=== PATIENT | female | born 1980 | race Caucasian/White ===

== ENCOUNTER 2018-02-06 08:36 | Outpatient (CLI) | payer MEDICAID | END 2018-02-06 08:37 | disposition home or self-care (01) | LOC: LAB.N 08:36 | PROVIDERS: ATTEND Nurse Practitioner | DX: Z34.81 Encounter for supervision of other normal pregnancy, first trimester (principal) | CPT/HCPCS: 36415; 84702 ==

== ENCOUNTER 2018-02-13 08:00 | Outpatient (CLI) | payer MEDICAID | END 2018-02-13 23:59 | LOC: LAB.R 08:00 | PROVIDERS: ATTEND Nurse Practitioner Obstetrics & Gynecology | DX: Z11.3 Encounter for screening for infections with a predominantly sexual mode of transmission (principal) | CPT/HCPCS: 87491; 87591 ==

== ENCOUNTER 2018-02-28 15:06 | Outpatient (CLI) | payer MEDICAID ==
[2018-02-28 15:33] LABS: BILIRUBIN,URINE NEGATIVE (NEGATIVE); CLARITY,URINE CLEAR (CLEAR); GLUCOSE, URINE (UA) NEGATIVE (NEGATIVE); KETONES,URINE (UA) NEGATIVE (NEGATIVE); LEUKOCYTE ESTERASE, URINE NEGATIVE (NEGATIVE); NITRITE,URINE NEGATIVE (NEGATIVE); OCCULT BLOOD,URINE NEGATIVE (NEGATIVE); PROTEIN,URINE NEGATIVE (NEGATIVE); UROBILINOGEN,URINE 0.2 (NORMAL) E.U./dL (NORMAL)
[2018-02-28 15:35] LABS: BASOPHILS # (AUTO) 0.1 10^3/uL (0.0-0.1); EOSINOPHILS # (AUTO) 0.2 10^3/uL (0.0-0.7); EOSINOPHILS % (AUTO) 1.9 %; HGB - HEMOGLOBIN 12.6 g/dL (12.0-16.0); LYMPHOCYTES # (AUTO) 1.8 10^3/uL (1.5-3.5); LYMPHOCYTES % (AUTO) 19.5 %; MEAN CORPUSCULAR HEMOGLOBIN 29.2 pg (27.0-31.0); MEAN CORPUSCULAR HGB CONC 34.4 g/dL (32.0-36.0); MEAN CORPUSCULAR VOLUME 84.9 fL (81.0-99.0); MEAN PLATELET VOLUME 9.2 fL (7.9-10.8); MONOCYTES # (AUTO) 0.7 10^3/uL (0.0-1.0); MONOCYTES % (AUTO) 7.7 %; NEUTROPHILS # (AUTO) 6.3 10^3/uL (1.5-6.6); NEUTROPHILS % (AUTO) 69.9 %; PLT - PLATELET COUNT 272 10^3/uL (130-450)
[2018-02-28 15:41] LABS: BACTERIA,URINE Rare /HPF (None Seen); RBC,URINE None Seen /HPF (0-5); SQUAMOUS EPITHELIAL CELL,UR MOD Squamous (<= Few)
[2018-03-01 13:11] LABS: HEPATITIS B SURFACE ANTIGEN NON-REACTIVE (NON-REACTIVE)
[2018-03-01 15:40] LABS: HIV AG/AB 4TH GEN NON-REACTIVE (NON-REACTIVE)
[2018-03-01 16:46] LABS: HEPATITIS C ANTIBODY NON-REACTIVE (NON-REACTIVE)
== END 2018-02-28 15:07 | disposition home or self-care (01) ==
LOC: LAB 15:06
PROVIDERS: ATTEND Nurse Practitioner Obstetrics & Gynecology
DX: O09.521 Supervision of elderly multigravida, first trimester (principal); Z36.9 Encounter for antenatal screening, unspecified
CPT/HCPCS: 36415; 81001; 81599; 85025; 86762; 86803; 86850; 86900; 86901; 87340; 87389

== ENCOUNTER 2018-05-01 12:31 | Outpatient (CLI) | payer MEDICAID ==
--- NOTE | 2018-05-01 16:05 | Ultrasound Report ---
Reason: ENCOUNTER FOR SCREENING,UNSPECIFIED Procedure Date: 05/01/2018 Accession Number: [id number] / [id number] Procedure: US - OB Detailed Eval CPT Code: FULL RESULT: EXAM: COMPLETE OBSTETRICAL ULTRASOUND EXAM DATE: 05/01/2018 01:44 PM. CLINICAL HISTORY: anatomic survey. COMPARISON: None. TECHNIQUE: Real-time sonographic evaluation of the fetus performed by the plastics heat welder. Multiple architectural representative static images were saved for review. Additional transvaginal imaging to more accurately evaluate cervical length/placental position/etc. DATING: Established EGA 19 weeks 4 days with [facility] 09/21/2018 based on LMP. EGA 20 weeks 1 day with [facility] 09/17/2018 based on the current ultrasound. GENERAL EVALUATION Clemens . Cardiac activity: 154 bpm. movement: Visualized. Presentation: Cephalic. Placenta: Posterior fundal position. No evidence for previa. Umbilical cord: 3 vessel cord. Central placental cord origin. Amniotic fluid: Subjectively normal. BIOMETRY Bi-Parietal Diameter (BPD): 4.5 cm, 19 weeks 5 days Head Circumference (HC): 17.0 cm, 19 weeks 4 days Abdominal Circumference (AC): 15.9 cm, 21 weeks 0 days Femur Length (FL): 3.3 cm, 20 weeks 2 days Estimated Weight: 359 gm, 91st LMP percentile. ANATOMY The intracranial structures, face/nose/lips, spine, 4 chamber heart and outflow tracts, stomach, abdominal wall and cord insertion, diaphragm, kidneys, bladder, and extremities were visualized and demonstrate no abnormality. The nasal bone is suboptimally evaluated. MATERNAL STRUCTURES Uterus: Unremarkable. Cervix: Long and closed. Transabdominal length 3.7 cm. Right ovary/adnexa: Unremarkable. Left ovary/adnexa: Unremarkable. Free fluid: None. IMPRESSION: 1. Clemens live intrauterine with gestational age 19 weeks 4 days based on LMP. 2. Estimated weight is within expected limits for assigned dating. 3. The nasal bone is suboptimally evaluated. Otherwise normal anatomic survey. No anatomic abnormalities are detected at this time. May follow-up in 1-2 weeks for focused profile evaluation if clinically indicated. RADIA
== END 2018-05-01 12:32 | disposition home or self-care (01) ==
LOC: DI 12:31
PROVIDERS: ATTEND Registered Nurse
DX: Z36.9 Encounter for antenatal screening, unspecified (principal)
CPT/HCPCS: 76811

== ENCOUNTER 2019-05-06 10:36 | Outpatient (CLI) | payer MEDICAID ==
[2019-05-06 16:17] VITALS: BP 90/50
--- NOTE | 2019-05-06 16:17 | SLEEP CARE CONSULTATION ---
Information from patient questionnaire entered by Lauren Guerra. I have reviewed and concur with the information entered by Lauren Guerra. This document represents the service I personally performed and the decisions made by me, Sarah Quintero MD, [facility]. History of Present Illness Reason for Visit: New patient Chief Complaint: reports: Excessive daytime sleepiness, Other (IDIOPATHIC HYPERSOMNOLENCE) Duration of Symptoms: 20 plus years Usual bedtime: 9-10 pm Time it takes to fall asleep: 1-2 mins Snores at night: Yes (not often) Observed to quit breathing while asleep: No Sleeps alone due to snoring: No Number of times waking at night: 3-5 times Reasons for waking at night: reports: Other (nursing my baby) Recalls having dreams: Yes Usually gets out of bed at: 8ish am Feels refreshed in the morning: No Morning headache: Yes Sleepy or fatigued during the day: Yes Ever fallen asleep while driving: No Takes day naps: Yes Dreams during day naps: Yes Prior sleep studies: Yes (unsure) Year and Where: 2013 or 2014 , [facility] (closed) Additional HPI information: I had the pleasure of seeing Ms. Hamilton today regarding the possibility of her having a sleep disorder. As you know, she is a 39 year old lady who complains of excessive daytime sleepiness. She had a sleep study that included polysomnography and multiple sleep latency test (MSLT) in [place] about 4 5 years ago. She was told that she did not have narcolepsy or idiopathic hypersomnia. The reports are not available because the sleep lab has since closed. No treatment was prescribed. However, about a year later a psychiatrist prescribed her with stimulants Vyvance and dexadrine. She does not recall being diagnosed with a psychiatric disorder such as attention deficit disorder. The medications help with daytime sleepiness and sleep paralysis that was bothering her. She is not sure if modafinil has been tried. She takes the medications every day except for when she was . She said when she was , she slept all day. She would rather not take the medications she could help it. The patient tells me that she normally goes to bed around 9 - 10 pm, and it takes her approximately 1 - 2 minutes to fall asleep. She has not been told that she snores loudly or irregularly at night. She has never been observed to stop breathing in her sleep. Her spouse sleeps in the same bed. She can recall waking up on the average of 3 - 5 times during the night. Most of the time she wakes up because of having to nurse her child. There is not a lot of tossing and turning in her sleep. No somniloquy (sleep talking) or somnambulism (sleep walking). Generally she can recall having dreams. In the morning she usually gets up out of the bed around 8 a.m. not feeling refreshed nor rested. She usually has morning headache. During the day she complains of feeling sleepy and fatigued. Her score on [place] Sleepiness Scale is 13 out of 24. She has never fallen asleep while driving nor has had any accident due to sleepiness. She usually takes naps during the day. Upon falling asleep during the day she reports having vivid dreams. She denies having impaired concentration during the day. 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 Patient is Life Partner and lives in [place]. Have you smoked in the past 12 months: No Alcohol use: No Caffeine use: Yes Caffeine amount and frequency: 1 mauritian press a day Family History Family history of sleep disordered breathing: No Allergies and Home Medications Drug allergies reviewed: Yes Home medication list reviewed: Yes Allergy and home medication list: vyvanse 60mg dexadrine 10mg Review of Systems Neurological: reports: headaches Musculoskeletal: reports: muscle pain or cramping, mobility problems Physical Exam Vital signs obtained and entered by: Dr. Quintero Blood Pressure: 90/50 Cuff size: long Heart Rate: 72 O2 Saturation: 99 Height: 5 ft 9 in Weight (kg): 160 lb Body Mass Index: 23.6 BMI Classification: Healthy weight Neck circumference: 13 Mood/affect: normal HEENT: No craniofacial malformation Nostrils: patent to airflow Turbinates: normal Septum: midline Mouth and throat: normal Soft palate: normal Hard palate: normal Uvula: normal Uvula visualization: 100% Mallampati Class I Tongue: normal in size Tonsils: small Chin and jaw: normal size and position Neck: normal w/o lymphadenopathy or thyromegaly Heart: regular rate and rhythm Lungs: clear bilaterally Abdomen: soft Extremities: no edema or clubbing Neurologic: intact Impression and Plan IMPRESSION: 1. Hypersomnia, responding well to Vyvanse and dexadrine. The patient has no clear diagnosis. The sleep physician at [facility] told her that she does not have narcolepsy or idiopathic hypersomnia but her psychiatrist gave prescribed her the stimulants. She reports symptoms suggestive of narcolepsysleep paralysis, hypnagogia, and possible cataplexy. Without documentation of narcolepsy or idiopathic hypersomnia, I cannot continue the stimulants for her. I recommend repeating the sleep studies (polysomnography and multiple sleep latency test) off the medications. In the meantime, we will try to get the sleep study report from [facility] and chart notes from the psychiatrist as to why he started her on the medications (did he think that she had ADD?). I informed the patient of what the sleep studies involve and after some discussion, she agreed to proceed. Plan: 1. Schedule polysomnography + multiple sleep latency test (MSLT). The patient will discontinue the stimulants 2 weeks prior to the study. 2. Attempt to get records from the sleep facility in [place] and from the psychiatrist that prescribed her the medications. 3. Return for follow up after the sleep study. I spent 100% of this 15 minute visit face to face with the patient with greater than 50% of this was spent time counseling the patient and coordination of care.
== END 2019-05-06 10:37 | disposition home or self-care (01) ==
LOC: SC 10:36
PROVIDERS: ATTEND Internal Medicine Pulmonary Disease
DX: G47.10 Hypersomnia, unspecified (principal)
CPT/HCPCS: 99203; 99212

== ENCOUNTER 2019-09-16 20:18 | Outpatient (CLI) | payer MEDICAID | END 2019-09-16 20:19 | disposition home or self-care (01) | LOC: SC 20:18 | PROVIDERS: ATTEND Internal Medicine Pulmonary Disease | DX: G47.10 Hypersomnia, unspecified (principal) | CPT/HCPCS: 95810 ==

== ENCOUNTER 2019-09-17 05:45 | Outpatient (CLI) | payer MEDICAID | END 2019-09-17 05:46 | disposition home or self-care (01) | LOC: SC 05:45 | PROVIDERS: ATTEND Internal Medicine Pulmonary Disease | DX: G47.10 Hypersomnia, unspecified (principal) | CPT/HCPCS: 95805 ==

== ENCOUNTER 2019-09-17 08:00 | Outpatient (CLI) | payer MEDICAID ==
[2019-09-17 15:26] LABS: MUDS CUTOFF CONCENTRATIONS CUTOFF CONC BELOW:
[2019-09-17 15:45] LABS: AMPHETAMINE SCREEN,URINE NEGATIVE (NEGATIVE); BENZODIAZEPINES SCREEN, URINE NEGATIVE (NEGATIVE); COCAINE SCREEN URINE NEGATIVE (NEGATIVE); METHADONE SCREEN, URINE NEGATIVE (NEGATIVE); METHAMPHETAMINES SCREEN, URINE NEGATIVE (NEGATIVE); OPIATE SCREEN, URINE NEGATIVE (NEGATIVE); OXYCODONE SCREEN, URINE NEGATIVE (NEGATIVE); PROPOXYPHENE SCREEN, URINE NEGATIVE (NEGATIVE); TRICYCLIC ANTIDEPRESSANT,URINE NEGATIVE (NEGATIVE)
== END 2019-09-17 23:59 | disposition home or self-care (01) ==
LOC: LAB.R 08:00
PROVIDERS: ATTEND Internal Medicine Pulmonary Disease
DX: R41.82 Altered mental status, unspecified (principal)
CPT/HCPCS: 80306

== ENCOUNTER 2019-09-30 12:54 | Outpatient (CLI) | payer MEDICAID ==
--- NOTE | 2019-09-30 14:32 | SLEEP CARE CONSULTATION ---
Information from patient questionnaire entered by Allison Flores. I have reviewed and concur with the information entered by Allison Flores. This document represents the service I personally performed and the decisions made by me, Sarah Quintero MD, [facility]. History of Present Illness Initial [place] Sleepiness Scale score: 13 Current [place] Sleepiness Scale score: 12 Additional HPI information: HPI: returned for follow up of the sleep studies (in-laboratory p olysomnography and multiple sleep latency test) she recently had. The polysomnography showed that the patient had slightly reduced sleep efficiency due to a few awakenings after the sleep onset. Except for mild sleep fragmentation, the sleep architecture was normal. REM latency was normal. Respiratory monitoring showed no significant sleep disordered breathing (AHI = 1.0) or hypoxia (david oxygen saturation of 89%). The patient slept adequately in supine position (supine AHI = 1.6; non-supine = 0.34). Snore was infrequent and light in intensity. There was no significant periodic leg movement of sleep. Cardiac rhythm was normal sinus rhythm without significant arrhythmia. No abnormal behavior (parasomnia) observed during the night. The multiple sleep latency test (MSLT) showed mean sleep latency of 6:45 minutes which is in the range of mild daytime sleepiness. No sleep onset REM period. However, she only had 4 naps instead of the standard 5 because she had to go home early. The patient was informed of these findings. The patient main complaints remain sleep paralysis and excessive daytime sleepiness. The sleep paralysis is now less frequent. She was on Vyvanse and dexadrine but went off them last June. She said the medications did make her more awake during the day. The medications were prescribed by her psychiatrist but she has not been told that she has any psychiatric disorders. She tried modafinil in the past but developed headache on it. Allergies and Home Medications Drug allergies reviewed: Yes Home medication list reviewed: Yes (none) Review of Systems Review of systems same as previous: Yes Physical Exam Height: 5 ft 9 in Weight: 160 lb Body Mass Index: 23.6 BMI Classification: Healthy weight Impression and Plan IMPRESSION: 1. Hypersomnia, mild, based on the multiple sleep latency test (MSLT) result. Most likely she does not have narcolepsy because there were no naps with sleep onset REM period. The amount of REM sleep at night was also normal. She was encouraged to get enough sleep at night. 2. 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 She was reassured that the disorder, even though scary, is safe. She was advised to avoid sleep deprivation and sleeping supine. PLAN: 1. Allow at least 8 9 hours for sleep each night. 2. Avoid sleeping supine 3. Follow up with her psychiatrist regarding the two medications she discontinued. 4. Return to the sleep clinic on as needed basis. I spent 100% of this visit face to face with the patient with greater than 50% of this was spent time counseling the patient and coordination of care.
== END 2019-09-30 12:55 | disposition home or self-care (01) ==
LOC: SC 12:54
PROVIDERS: ATTEND Internal Medicine Pulmonary Disease
DX: G47.10 Hypersomnia, unspecified (principal); G47.53 Recurrent isolated sleep paralysis
CPT/HCPCS: 99212; 99213

== ENCOUNTER 2020-11-29 14:07 | Outpatient (CLI) | payer MEDICAID ==
--- NOTE | 2020-11-29 16:03 | SLEEP CARE CONSULTATION ---
Information from patient questionnaire entered by Karina Parisi. I have reviewed and concur with the information entered by Karina Parisi. This document represents the service I personally performed and the decisions made by me, Sarah Quintero MD, [facility]. History of Present Illness Service Date and Time: 11/29/2020 1407 AHI: 1.0 Reason for follow up: annual (Last seen 09/2019) Prior sleep studies: Yes (unsure) Year and Where: 2019 [facility], 2013 or 2014 [facility] (closed) HPI additional information: HPI: Ms. Hamilton was seen here about a year ago with complaints of sleep paralysis and excessive daytime sleepiness. An in-laboratory polysomnography and multiple sleep latency test (MSLT) were performed. The polysomnography was normal. The MSLT showed decreased mean sleep latency of about 6 minutes but no sleep onset REM period. The test was stopped prematurely after 4 naps because she had to breast feed. She returns today because she is sleepier during the day ([place] Sleepiness Scale score is 10). She said the symptoms improved over the past year but the sleepiness recently returned. The sleep paralysis is still absent. Presently, she is not taking any medications (she was on Vyvanse and dexadrine. She has gained weight. No snore reported by her . She says that daytime naps are not helpful. She usually wakes up from them with a headache. Subjective Initial [place] Sleepiness Scale score: 13 (in 2019) Current [place] Sleepiness Scale score: 10 Allergies and Home Medications Drug allergies reviewed: Yes Home medication list reviewed: Yes Review of Systems Review of systems same as previous: Yes Physical Exam Height: 5 ft 9 in Weight: 202 lb Body Mass Index: 29.8 BMI Classification: Overweight Impression and Plan IMPRESSION: 1. Hypersomnia, of unclear etiology. With 40-lb weight gain, she may now have obstructive sleep apnea-hypopnea. I will repeat the in-laboratory polysomnography and multiple sleep latency test (MSLT). PLAN: 1. Schedule an in-laboratory polysomnography + MSLT 2. Try to lose weight. Return for a follow up after the sleep study. Follow up recommended for: Weight management Visit Type: In Office Time Spent with Patient (minutes): 15 Provider Statement: I spent 100% of the Face to Face Visit with the patient with greater than 50% spent counseling the patient and coordination of care.
== END 2020-11-29 14:08 | disposition home or self-care (01) ==
LOC: SC 14:07
PROVIDERS: ATTEND Internal Medicine Pulmonary Disease
DX: G47.10 Hypersomnia, unspecified (principal); E66.3 Overweight; Z68.29 Body mass index [BMI] 29.0-29.9, adult
CPT/HCPCS: 99212

== ENCOUNTER 2020-12-20 07:13 | Outpatient (CLI) | payer MEDICAID ==
--- NOTE | 2020-12-20 12:35 | MRI Report ---
PROCEDURE: Shoulder RT W/O INDICATIONS: MUSCLE ATROPHY OF RT SHLDR, R WINGED SCAPULA TECHNIQUE: Noncontrast oblique coronal T2 fast spin echo with fat saturation, oblique sagittal T1 spin echo and T2 fast spin echo with fat saturation, axial T1 spin echo and T2 fast spin echo with fat saturation t hrough the shoulder. COMPARISON: None. FINDINGS: Rotator cuff: Supraspinatus tendinopathy, with low-grade bursal and articular surface fraying. There is also infras pinatus tendinopathy and low-grade bursal and articular surface fraying. No full-thickness defect asmita ntified. Teres minor and subscapularis tendons appear intact. No atrophy of the rotator cuff muscles. Bones and bursae: No bone marrow contusions or fractures. Moderate acromioclavicular joint degeneration. The acromion demonstrates conventional anatomy, without an os acromiale. Mild subacromial/subdeltoid bursal fluid is present. Capsule and soft tissues: Labrum: Superior labral ill-defined probably age-appropriate degeneration. Mildly thickened appearanc e of the inferior glenohumeral ligament anterior band raising possibility of low-grade chronic sprain . There is also amorphous hypertrophy of the anteroinferior labrum with adjacent degenerative signal change in the glenoid keeping with chronic anterior labral tear. There is adjacent glenoid rim sclero sis. The long head of the biceps tendon demonstrates normal location and morphology. The rotator interval appears normal, without fibrosis. The coracohumeral ligament is normal in thickness. IMPRESSION: Rotator cuff tendinopathy and low-grade articular and bursal surface fraying as detailed above. No hi gh-grade or full-thickness defect identified. No atrophy of the rotator cuff musculature. Mild subacromial-subdeltoid bursitis Chronic appearing anteroinferior labral tear. Low-grade chronic appearing of the inferior glenohumeral ligament. Of note, if there is concern for atrophy of the medial paraspinal musculature, in the setting of scap ular winging, consider further evaluation with chest MRI. Reviewed by: London Herman MD on 12/20/2020 12:34 PM PDT Approved by: London Herman MD on 12/20/2020 12:34 PM PDT Station ID: [id number]
== END 2020-12-20 07:14 | disposition home or self-care (01) ==
LOC: DI 07:13
PROVIDERS: ATTEND Family Medicine
DX: M75.81 Other shoulder lesions, right shoulder (principal); M75.51 Bursitis of right shoulder

== ENCOUNTER 2021-02-18 13:09 | Emergency (ER) | payer MEDICAID ==
[2021-02-18 13:51] LABS: BASOPHILS # (AUTO) 0.1 10^3/uL (0.0-0.1); BASOPHILS % (AUTO) 0.6 %; EOSINOPHILS # (AUTO) 0.2 10^3/uL (0.0-0.7); HCT - HEMATOCRIT 39.4 % (37.0-47.0); LYMPHOCYTES % (AUTO) 24.2 %; MEAN CORPUSCULAR HEMOGLOBIN 27.9 pg (27.0-31.0); MEAN CORPUSCULAR VOLUME 84.5 fL (81.0-99.0); MEAN PLATELET VOLUME 10.7 fL (7.9-10.8); MONOCYTES # (AUTO) 0.5 10^3/uL (0.0-1.0); MONOCYTES % (AUTO) 6.4 %; NEUTROPHILS # (AUTO) 5.6 10^3/uL (1.5-6.6); NEUTROPHILS % (AUTO) 66.6 %; PLT - PLATELET COUNT 311 10^3/uL (130-450); RED BLOOD COUNT 4.66 10^6/uL (4.20-5.40); RED CELL DISTRIBUTION WIDTH 12.8 % (12.0-15.0); WHITE BLOOD COUNT 8.4 x10^3/uL (4.8-10.8)
[2021-02-18 13:59] LABS: HCG UR QUAL POSITIVE
[2021-02-18 14:09] LABS: ALBUMIN 4.5 g/dL (3.2-5.5); ALBUMIN/GLOBULIN RATIO 1.5 (1.0-2.2); BILIRUBIN,TOTAL 0.6 mg/dL (0.2-1.0); CREATININE 0.6 mg/dL (0.4-1.0); POTASSIUM 3.8 mmol/L (3.5-5.0); TOTAL PROTEIN 7.5 g/dL (6.7-8.2)
--- NOTE | 2021-02-18 14:18 | ED Physician Documentation ---
History of Present Illness - Stated complaint Stated Complaint: FEMALE /8WK OB - Chief complaint Chief Complaint: Abd Pain - Additonal information Additional information: 41-year-old female who is newly presents to the emergency department for evaluation of lower abdominal pelvic cramping and vaginal spotting that began yesterday. G3, P2 LMP 12/06/2020. Previous 2 pregnancies delivered vaginally without any complications and term. Patient is scheduled to establish with an OB at [facility] on 08 March. Patient reports that with her first 2 pregnancies she had significant morning sickness but has had very little of that with this . This is a desired . Review of Systems Constitutional: reports: Reviewed and negative Eyes: reports: Reviewed and negative Nose: reports: Reviewed and negative Cardiac: reports: Reviewed and negative Respiratory: reports: Reviewed and negative GI: reports: Other (pelvic cramping) : denies: Vaginal bleeding (vaginal spotting) Skin: reports: Reviewed and negative Musculoskeletal: reports: Reviewed and negative PD PAST MEDICAL HISTORY - Present Medications Home Medications: Ambulatory Orders Medication Instructions Recorded Confirmed Nitrofurantoin [Macrobid] 100 mg PO BID #14 02/18/21 - Allergies Allergies/Adverse Reactions: Allergies Allergy/AdvReac Type Severity Reaction Status Date / Time Penicillins AdvReac Emesis Verified 02/18/21 13:18 PD ED PE NORMAL - General General: Alert and oriented X 3, No acute distress - Neck Neck: Supple, no meningeal sign - Cardiac Cardiac: RRR, No murmur - Respiratory Respiratory: Clear bilaterally - Abdomen Abdomen: Normal bowel sounds, Soft, Non tender, Non distended - Female Female : Deferred - Back Back: No CVA TTP, No spinal TTP - Derm Derm: Normal color, No rash - Neuro Neuro: Alert and oriented X 3 Eye Opening: Spontaneous Motor: Obeys Commands Verbal: Confused GCS Score: 14 Results - Vitals Vitals: Vital Signs - 24 hr 02/18/21 13:15 Temperature 36.8 C Heart Rate 67 Respiratory 16 Rate Blood Pressure 117/68 O2 Saturation 95 Oxygen O2 Source Room air - Labs Labs: Laboratory Tests 02/18/21 02/18/21 02/18/21 13:25 13:25 13:44 WBC 8.4 RBC 4.66 Hgb 13.0 Hct 39.4 MCV 84.5 MCH 27.9 MCHC 33.0 RDW 12.8 Plt Count 311 MPV 10.7 Neut # (Auto) 5.6 Lymph # (Auto) 2.0 [place] # (Auto) 0.5 Eos # (Auto) 0.2 Baso # (Auto) 0.1 Absolute Nucleated RBC 0.00 Nucleated RBC % 0.0 Sodium Potassium Chloride Carbon Dioxide Anion Gap BUN Creatinine Estimated GFR (MDRD) Glucose Calcium Total Bilirubin AST ALT Alkaline Phosphatase Total Protein Albumin Globulin Albumin/Globulin Ratio Lipase HCG, Quant Urine Color YELLOW Urine Clarity CLEAR Urine pH 5.5 Ur Specific [place] 1.025 Urine Protein NEGATIVE Urine Glucose (UA) NEGATIVE Urine Ketones NEGATIVE Urine Occult Blood SMALL H Urine Nitrite NEGATIVE Urine Bilirubin NEGATIVE Urine Urobilinogen 0.2 (NORMAL) Ur Leukocyte Esterase NEGATIVE Urine RBC 0-5 Urine WBC 0-3 Ur Squamous Epith Cells FEW Squamous Urine Bacteria Rare Ur Microscopic Review INDICATED Urine Culture Comments NOT INDICATED Urine HCG, Qual POSITIVE Blood Type 02/18/21 02/18/21 02/18/21 13:44 13:44 13:44 WBC RBC Hgb Hct MCV MCH MCHC RDW Plt Count MPV Neut # (Auto) Lymph # (Auto) [place] # (Auto) Eos # (Auto) Baso # (Auto) Absolute Nucleated RBC Nucleated RBC % Sodium 134 L Potassium 3.8 Chloride 101 Carbon Dioxide 25 Anion Gap 8.0 BUN 17 Creatinine 0.6 Estimated GFR (MDRD) 110 Glucose 91 Calcium 9.0 Total Bilirubin 0.6 AST 12 ALT 13 Alkaline Phosphatase 40 L Total Protein 7.5 Albumin 4.5 Globulin 3.0 Albumin/Globulin Ratio 1.5 Lipase 25 HCG, Quant 96756.00 Urine Color Urine Clarity Urine pH Ur Specific [place] Urine Protein Urine Glucose (UA) Urine Ketones Urine Occult Blood Urine Nitrite Urine Bilirubin Urine Urobilinogen Ur Leukocyte Esterase Urine RBC Urine WBC Ur Squamous Epith Cells Urine Bacteria Ur Microscopic Review Urine Culture Comments Urine HCG, Qual Blood Type A POSITIVE - Rads (name of study) pelvic US with trans vag OB Radiology: Prelim report reviewed, See rad report (Gestational sac measuring 6 weeks 6 days with no heart tone. Brandt-rump rump length 6 weeks. Subchorionic hemorrhage present. There is a right corpus luteal cyst no secondary findings to suggest ectopic) PD MEDICAL DECISION MAKING - ED course Complexity details: reviewed results, re-evaluated patient, d/w patient ED course: 41-year-old female who presents to the ER in the first trimester concerning that she may be having a miscarriage. She has been having lower pelvic cramping and vaginal spotting. LMP mid November. Screening labs today show Rh+ status. There is a very minor amount of bacteria in the urine which will be treated with Macrobid. Her Sheree hCG is just over 11,000. Unfortunately the ultrasound reveals a 6-week 6-day-old gestational sac without findings of heart tone though it may be early in . There is also findings of a subchorionic hemorrhage. Findings were discussed with the patient. This is a very desired and she is electing to return on Sunday afternoon for a 48-hour hCG check. I have encouraged her to follow-up with her OB at [place] but given the iday weekend she has declined to do that and will return here in 48 hours. Emergent return precautions were discussed for concerns of severe vaginal bleeding. Departure - Departure Disposition: 01 Home, Self Care Clinical Impression: Threatened miscarriage in early , Bacteria in urine Subchorionic bleed Qualifiers: Fetus number: single or unspecified fetus Trimester: first trimester Qualified Code(s): O41.8X10 - Other specified disorders of amniotic fluid and membranes, first trimester, not applicable or unspecified; O46.8X1 - Other antepartum hemorrhage, first trimester Condition: Stable Record reviewed to determine appropriate education?: Yes Instructions: ED Miscarriage Poss Prescriptions: Nitrofurantoin [Macrobid] 100 mg PO BID #14 Comments: You are seen in the ER today for vaginal spotting in the first trimester of your . Your beta hCG today is just over 11,000. Unfortunately the ultrasound shows that you do have a small subchorionic hemorrhage. This is where the placenta can begin to separate a little bit from the uterus wall. In addition to that the ultrasound did not show heart tones yet. It may be too early in however as 6 weeks is the official cutoff date. It is possible that you are miscarrying this . Unfortunately at this stage in there is very little that we could do to prevent this from occurring. There is a small amount of bacteria in your urine. I do recommend that we treat this. Please fill the prescription for the antibiotics and begin taking as directed. Discuss this ED visit with your OB provider. If you would like you can return on Sunday for a lab draw in which we would check your hormone levels in . A rising hormone level is a reassuring sign however a declining hormone level is a sign of inevitable miscarriage. If at any point you have suddenly severe lower pelvic pain, severe vaginal bleeding, please return to the ED for a second evaluation
[2021-02-18 15:12] LABS: BILIRUBIN,URINE NEGATIVE (NEGATIVE); GLUCOSE, URINE (UA) NEGATIVE (NEGATIVE); KETONES,URINE (UA) NEGATIVE (NEGATIVE); LEUKOCYTE ESTERASE, URINE NEGATIVE (NEGATIVE); NITRITE,URINE NEGATIVE (NEGATIVE); OCCULT BLOOD,URINE SMALL (NEGATIVE); PH,URINE 5.5 PH (5.0-7.5); PROTEIN,URINE NEGATIVE (NEGATIVE); UROBILINOGEN,URINE 0.2 (NORMAL) E.U./dL (NORMAL)
[2021-02-18 15:13] LABS: CLARITY,URINE CLEAR (CLEAR)
[2021-02-18 15:23] LABS: BACTERIA,URINE Rare /HPF (None Seen); RBC,URINE 0-5 /HPF (0-5); SQUAMOUS EPITHELIAL CELL,UR FEW Squamous (<= Few); WBC,URINE 0-3 /HPF (0-5)
--- NOTE | 2021-02-18 16:03 | Ultrasound Report ---
PROCEDURE: OB First Trimester INDICATIONS: R PELVIC PX. 8 WKS PREG OUTSIDE/PRIOR DATING DATA: Last menstrual period (LMP): Unknown. LMP-based estimated date of delivery (SADI): Unknown. First dating scan (date and location): 02/18/2021. Estimated date of delivery (SADI) from first dating scan: Not applicable TECHNIQUE: Real-time scanning was performed of the fetus and maternal pelvic organs, with image documentation. COMPARISON: None FINDINGS: Embryo: Single intrauterine is identified with gestational sac measuring 2.0 cm correspond ing to 6 weeks 6 days. There is appearance of a yolk sac and possible ill-defined crown-rump length. Heart rate is not identified. Cervix is closed. Subchorionic hemorrhage is present measuring 5.0 x 0. 7 x 2.3 cm. Heart rate: Not identified. Measurement variability in dating: +/- 4 weeks by LMP, +/- 7 days by mean sac diameter (use before 6 weeks gestation if crown-rump length not able to be measured), +/- 5 days by crown-rump length (6-12 weeks gestation). Maternal organs: Ovaries demonstrate a right corpus luteal cyst.. IMPRESSION: 1. Intrauterine gestational sac with possible ill-defined crown-rump length. Heart rate is not identi fied. Recommend correlation to beta hCG levels and short interval imaging follow-up for evaluation of possible viable or potential demise. 2. Subchorionic hemorrhage is present. Reviewed by: Leila Bean MD on 02/18/2021 4:02 PM PDT Approved by: Leila Bean MD on 02/18/2021 4:02 PM PDT Station ID: [id number]
--- NOTE | 2021-02-18 16:04 | Ultrasound Report ---
PROCEDURE: OB Transvaginal INDICATIONS: R PELVIC PX. 8 WKS PREG OUTSIDE/PRIOR DATING DATA: Last menstrual period (LMP): Unknown. LMP-based estimated date of delivery (SADI): Unknown. First dating scan (date and location): 02/18/2021. Estimated date of delivery (SADI) from first dating scan: Not applicable TECHNIQUE: Real-time scanning was performed of the fetus and maternal pelvic organs, with image documentation. COMPARISON: None FINDINGS: Embryo: Single intrauterine is identified with gestational sac measuring 2.0 cm correspond ing to 6 weeks 6 days. There is appearance of a yolk sac and possible ill-defined crown-rump length. Heart rate is not identified. Cervix is closed. Subchorionic hemorrhage is present measuring 5.0 x 0. 7 x 2.3 cm. Heart rate: Not identified. Measurement variability in dating: +/- 4 weeks by LMP, +/- 7 days by mean sac diameter (use before 6 weeks gestation if crown-rump length not able to be measured), +/- 5 days by crown-rump length (6-12 weeks gestation). Maternal organs: Ovaries demonstrate a right corpus luteal cyst.. IMPRESSION: 1. Intrauterine gestational sac with possible ill-defined crown-rump length. Heart rate is not identi fied. Recommend correlation to beta hCG levels and short interval imaging follow-up for evaluation of continued viable or potential demise. 2. Subchorionic hemorrhage is noted. Reviewed by: Leila Bean MD on 02/18/2021 4:03 PM PDT Approved by: Leila Bean MD on 02/18/2021 4:03 PM PDT Station ID: [id number]
[2021-02-18 16:15] VITALS: BP 128/74
--- NOTE | 2021-02-18 16:47 | Ultrasound Report ---
PROCEDURE: Doppler Complete INDICATIONS: R PELVIC PX. 8 WKS PREG OUTSIDE/PRIOR DATING DATA: Last menstrual period (LMP): Unknown. LMP-based estimated date of delivery (SADI): Unknown. First dating scan (date and location): 02/18/2021. Estimated date of delivery (SADI) from first dating scan: Not applicable TECHNIQUE: Real-time scanning was performed of the fetus and maternal pelvic organs, with image documentation. COMPARISON: None FINDINGS: Embryo: Single intrauterine is identified with gestational sac measuring 2.0 cm correspond ing to 6 weeks 6 days. There is appearance of a yolk sac and possible ill-defined crown-rump length. Heart rate is not identified. Cervix is closed. Subchorionic hemorrhage is present measuring 5.0 x 0. 7 x 2.3 cm. Heart rate: Not identified. Measurement variability in dating: +/- 4 weeks by LMP, +/- 7 days by mean sac diameter (use before 6 weeks gestation if crown-rump length not able to be measured), +/- 5 days by crown-rump length (6-12 weeks gestation). Maternal organs: Ovaries demonstrate a right corpus luteal cyst.. IMPRESSION: 1. Intrauterine gestational sac with possible ill-defined crown-rump length. Heart rate is not identi fied. Recommend correlation to beta hCG levels and short interval imaging follow-up for evaluation of possible viable or potential demise. 2. Subchorionic hemorrhage is present. Reviewed by: Leila Bean MD on 02/18/2021 4:46 PM PDT Approved by: Leila Bean MD on 02/18/2021 4:46 PM PDT Station ID: [id number]
== END 2021-02-18 16:37 | disposition home or self-care (01) ==
LOC: ED 13:09
DX: O20.0 Threatened abortion (principal); O99.891 Other specified diseases and conditions complicating pregnancy; R82.71 Bacteriuria; Z3A.01 Less than 8 weeks gestation of pregnancy
CPT/HCPCS: 36415; 80053; 81001; 81003; 81025; 83690; 84702; 85025; 86900; 86901; 87086; 93975; 99284

== ENCOUNTER 2023-10-31 08:27 | Outpatient (CLI) | payer BC ==
[2023-10-31 11:38] LABS: BASOPHILS # (AUTO) 0.1 10^3/uL (0.0-0.1); BASOPHILS % (AUTO) 0.7 %; EOSINOPHILS # (AUTO) 0.2 10^3/uL (0.0-0.7); EOSINOPHILS % (AUTO) 2.2 %; HCT - HEMATOCRIT 43.4 % (37.0-47.0); HGB - HEMOGLOBIN 13.5 g/dL (12.0-16.0); LYMPHOCYTES # (AUTO) 2.1 10^3/uL (1.5-3.5); MEAN CORPUSCULAR HEMOGLOBIN 26.6 pg (27.0-31.0); MEAN CORPUSCULAR HGB CONC 31.1 g/dL (32.0-36.0); MEAN CORPUSCULAR VOLUME 85.4 fL (81.0-99.0); MEAN PLATELET VOLUME 12.1 fL (7.9-10.8); MONOCYTES # (AUTO) 0.6 10^3/uL (0.0-1.0); MONOCYTES % (AUTO) 7.6 %; NEUTROPHILS # (AUTO) 5.2 10^3/uL (1.5-6.6); NEUTROPHILS % (AUTO) 63.3 %; PLT - PLATELET COUNT 296 10^3/uL (130-450); RED BLOOD COUNT 5.08 10^6/uL (4.20-5.40); RED CELL DISTRIBUTION WIDTH 12.8 % (12.0-15.0); WHITE BLOOD COUNT 8.2 x10^3/uL (4.8-10.8)
[2023-10-31 13:05] LABS: % IRON SATURATION 15 % (20-50); ALBUMIN 4.6 g/dL (3.2-5.5); ALBUMIN/GLOBULIN RATIO 1.4 (1.0-2.2); ALKALINE PHOSPHATASE 40 IU/L (42-121); ALT ALANINE AMINOTRANSFERASE 9 IU/L (10-60); AST ASPARTATE AMINOTRANSFERASE 12 IU/L (10-42); BILIRUBIN,TOTAL 0.4 mg/dL (0.2-1.0); BUN - BLOOD UREA NITROGEN 17 mg/dL (6-20); CARBON DIOXIDE - CO2 27 mmol/L (21-32); CHLORIDE 104 mmol/L (101-111); CHOL/HDL RATIO 3.8 (<4.4); CHOLESTEROL 210 mg/dL; CREATININE 0.7 mg/dL (0.6-1.3); GFR - MDRD 91 (>89); GLUCOSE 97 mg/dL (74-104); HDL CHOLESTEROL 56 mg/dL; IRON 54 ug/dL (50-212); LDL CHOLESTEROL,CALCULATED 137 mg/dL; LDL/HDL RATIO 2.4 (<4.4); POTASSIUM 4.6 mmol/L (3.5-4.5); SODIUM 136 mmol/L (135-145); TOTAL IRON BINDING CAPACITY 351 ug/dL (250-450); TOTAL PROTEIN 7.9 g/dL (6.4-8.9); TRANSFERRIN 251 mg/dL (203-362); TRIGLYCERIDES 86 mg/dL (48-352); VLDL CHOLESTEROL 17 mg/dL
[2023-10-31 13:09] LABS: FERRITIN 34.3 ng/mL (11.0-306.8)
[2023-10-31 13:10] LABS: THYROID STIMULATING HORMONE 2.15 uIU/mL (0.34-5.60)
== END 2023-10-31 08:28 | disposition home or self-care (01) ==
LOC: LAB.N 08:27
PROVIDERS: ATTEND Physician Assistant
DX: L65.9 Nonscarring hair loss, unspecified (principal); Z13.220 Encounter for screening for lipoid disorders; R53.83 Other fatigue
CPT/HCPCS: 36415; 80053; 80061; 82728; 83540; 83721; 84439; 84443; 84466; 84481; 85025

== ENCOUNTER 2024-01-15 08:00 | Outpatient (CLI) | payer BC, OTHER | END 2024-01-15 23:59 | disposition home or self-care (01) | LOC: LAB.N 08:00 | PROVIDERS: ATTEND Family Medicine | DX: N39.0 Urinary tract infection, site not specified (principal) | CPT/HCPCS: 87086 ==